=== PATIENT | female | born 1965 | race American Indian/Alaskan Native ===

== ENCOUNTER 2019-10-14 09:09 | Outpatient (CLI) | payer OTHER ==
--- NOTE | 2019-10-14 11:15 | Fluoroscopy Report ---
Barium swallow Indication: R10.13 EPIGASTRIC PAIN/R10.84GENERALIZED ABDOMINAL PAIN. Technique: Single and double contrast barium technique utilized to evaluate the esophagus. Findings: No mucosal irregularity, mass, mass effect, or critical stenosis. There were no abnormal tertiary contractions as seen with dysmotility. No gastroesophageal reflux. The gastric lap band appear to be positioned in the region of the gastric cardia, although the stomac h did not appear to be significantly compressed in this region which brings into question whether the band was actually inflated. I then attempted to follow the course of the tubing which I was able to follow along the majority except distally leading up to the lap band itself. The stomach itself other lin appears unremarkable and liquid readily passed from the esophagus into the stomach without any n arrowing or delay. Impression: Gastric lap band findings as outlined above. Fluoroscopic time: 2.5 minutes Number of fluoroscopic images: 25 Signer Name: Cesario Catherine MD Signed: 10/14/2019 11:10 AM Workstation Name: [id number]
== END 2019-10-14 09:10 | disposition home or self-care (01) ==
LOC: FLUORO 09:09
PROVIDERS: ATTEND Specialist
DX: R10.13 Epigastric pain (principal); R10.84 Generalized abdominal pain; K95.09 Other complications of gastric band procedure
CPT/HCPCS: 74246